=== PATIENT | female | born 1995 | race Caucasian/White ===

== ENCOUNTER 2017-01-08 10:57 | Outpatient (CLI) | payer MEDICAID ==
[~2017-01-08] VITALS: Ht 160 cm; Wt 100.8 kg
[~2017-01-08 10:57] MED LIST: DENIES; PRENAT PO
[2017-01-08 11:09] VITALS: Ht 160 cm; Wt 100.8 kg
--- NOTE | 2017-01-08 13:48 | RADRPT ---
PROCEDURE: US OB. CLINICAL INDICATION: Size and dates , SROM TECHNIQUE: Multiple sonographic images of the pelvis and gravid uterus were obtained. The images were reviewed on a PACS workstation. COMPARISON: No prior studies are available for comparison. FINDINGS: There is a single viable intrauterine gestation. Cardiac activity is present with 134 beats per min [place]. There is a vertex presentation. The placenta is anterior. There is no evidence for an abruption or placenta previa. There is a normal amount of amniotic fluid with an NAPOLEON = 14.7 cm. Measurements were made in order to determine age. The results are as follows: BPD =9.2 cm HC =33.8 cm AC =33.2 cm FL =7.4 cm Estimated gestational age of approximately 37 weeks and 6 days based on ultrasound measurements. Clinical age: 37 weeks and 0 days. The estimated date of delivery is 01/23/17, based on ultrasound measurements. The EFW = 3237 g, 70%, based on LMP age. RPTAT: AA IMPRESSION: Single viable intrauterine gestation of approximately 37 weeks and 6 days based on ultrasound measu rements. .Vitaliy Sampson MD, MD Date Time Electronically viewed and signed by .Vitaliy Sampson MD, on 01/08/2017 13:48 .S/
--- NOTE | 2017-01-08 13:50 | RADRPT ---
PROCEDURE: US OB biophysical profile. CLINICAL INDICATION: decreased movements, SROM TECHNIQUE: Multiple sonographic images of the pelvis were obtained. The images were reviewed on a PACS workstation. COMPARISON: same day FINDINGS: There is a single viable intrauterine gestation. Cardiac activity is present with 137 beats per min [place]. There is a vertex presentation. The placenta is anterior. There is no evidence for an abruption or placenta previa. There is a normal amount of amniotic fluid with an NAPOLEON = 14.7 cm. Biophysical profile: movement 2/2 tone 2/2. breathing 2/2 NAPOLEON 2/2 Total 06/30 RPTAT: AA . IMPRESSION: Normal biophysical profile. . .Vitaliy Sampson MD, MD Date Time Electronically viewed and signed by .Vitaliy Sampson MD, MD on 01/08/2017 13:50 .S/
--- NOTE | 2017-01-08 14:58 | CONS ---
Date/Time of Note Date/Time of Note DATE: 01/08/17 TIME: 14:50 Consultation Date/Type/Reason Admit Date/Time Initial Consult Date Laboratory Tests Type of Consultation: Triage consult Reason for Consultation This patient is a 21 years old 2 para 1 with EDC of January 29, 2017 which makes her about 37 weeks , . She came to OB triage complaining of leaking fluid from vagina and possible rupture of membrane, On examination she is a well-developed well-nourished lady about 9 months in no acute distress. Her abdomen was soft heart tracing were normal with good acceleration and variability no deceleration. Her vital signs were normal: blood pressure 116/65 pulse rate 87 temperature 98.1. On pelvic examination her cervix was about 1 cm dilated 40% effaced -2 station . Nitrazine test was negative. Dominique was ordered and was negative. On ultrasound study biophysical profile was 8 of 8. The NAPOLEON was 14.7. Estimated weight was 3237 g Patient was kept in the triage area for another hour.The contraction were rare . tracing is okay Disposition: reassurance was given and patient is discharged to be followed in the clinic. Laboratory Tests End of dictation Exam/Review of Systems Results Results 24 hrs Laboratory Tests Test 01/08/17 11:30 Membranes Rupture NEGATIVE KIRSTIE MICHEL MD Jan 08, 2017 14:58 KIRSTIE MICHEL MD Jan 08, 2017 14:58
== END 2017-01-08 15:10 | disposition home or self-care (01) ==
LOC: OBT 10:57 → L-D 10:58 → OBT 15:10
PROVIDERS: ATTEND Obstetrics & Gynecology
DX: O42.92 Full-term premature rupture of membranes, unspecified as to length of time between rupture and onset of labor (principal); Z3A.37 37 weeks gestation of pregnancy
CPT/HCPCS: 76815; 76818; 84112; Z7500; G0463

== ENCOUNTER 2017-01-24 15:20 | Inpatient (IN) | payer MEDICAID, OTHER ==
[~2017-01-24] VITALS: Ht 160 cm; Wt 102.5 kg
[2017-01-24 15:41] VITALS: Ht 160 cm; Wt 102.5 kg
[2017-01-24 15:42] VITALS: PULSE 98
[2017-01-24] MEDS ORDERED: OXYTOCIN 30 UNITS/LR 500 ML IV PRN (16:00)
[2017-01-24] MEDS ORDERED: BUTORPHANOL 2 MG INJ IV PRN ×2 (16:00)
[2017-01-24] MEDS ORDERED: LACTATED RINGER'S 1,000 ML IV PRN (16:00)
[2017-01-24] MEDS ORDERED: MISOPROSTOL 200 MCG TAB PR PRN (16:00)
[2017-01-24] MEDS ORDERED: METHYLERGONOVINE 0.2 MG INJ IM PRN (16:00)
[2017-01-24] MEDS ORDERED: OXYTOCIN 30 UNITS/LR 500 ML IV SCH ×2 (16:00)
[2017-01-24] MEDS ORDERED: CARBOPROST 250 MCG INJ IM PRN (16:00)
[2017-01-24] MEDS ORDERED: LIDOCAINE 1% (MPF) 30 ML INJ INJ PRN (16:00)
[2017-01-24 16:22] LABS: ADD SCAN DIFF NO
[2017-01-24 16:23] LABS: BASOPHILS % 0.2 % (0.0-2.0); EOSINOPHILS % 0.3 % (0.0-7.0); HEMATOCRIT 30.8 % (37.0-47.0); HEMOGLOBIN 9.6 g/dl (12.0-16.0); LYMPHOCYTES # 2.7 10^3/ul (0.8-2.9); LYMPHOCYTES % 29.7 % (15.0-51.0); MEAN CORPUSCULAR HEMOGLOBIN 24.6 pg (29.0-33.0); MEAN CORPUSCULAR HGB CONC 31.2 g/dl (32.0-37.0); MEAN PLATELET VOLUME 10.6 fl (7.4-10.4); MONOCYTE # 0.5 10^3/ul (0.3-0.9); MONOCYTES % 5.8 % (0.0-11.0); NEUTROPHIL # 5.8 10^3/ul (1.6-7.5); PLATELET COUNT 278 10^3/UL (140-415); RED CELL DISTRIBUTION WIDTH 14.6 % (11.5-14.5); WHITE BLOOD COUNT 9.1 10^3/ul (4.8-10.8)
[2017-01-24] MEDS: LACTATED RINGER'S 1,000 ML IV SCH ×3 (16:24→23:15)
[2017-01-24] MEDS ORDERED: TERC20CR VAGINAL (16:30)
--- NOTE | 2017-01-24 16:33 | RADRPT ---
PROCEDURE: US OB. CLINICAL INDICATION: Large for gestational age. TECHNIQUE: Multiple sonographic images of the uterus were obtained. The images were revi ewed on a PACS workstation. COMPARISON: No prior studies are available for comparison. FINDINGS: There is a single live intrauterine gestation. heart rate is 129 beats per minute. Measurements were made in order to determine age. The results are as follows: BPD = 9.32 cm. HC = 32.68 cm. AC = 38.27 cm. FL = 7.70 cm. Estimated weight is 4086 +/- 613 grams. LMP growth percentile is 91%. Menstrual age by ultrasound dates is 38 weeks 1 day. The estimated date of delivery is 02/06/2017. Position is cephalic and placenta is anterior grade II. There is no evidence for an abruption or sophy centa previa. IMPRESSION: 1. Single live intrauterine gestation of 38 weeks 1 day menstrual age by ultrasound dates. 2. The estimated date of delivery is 02/06/2017. 3. Estimated weight is 4086 +/- 613 g which is at the 91st percentile. RPTAT: QQ .Zbigniew Khan MD, Date Time Electronically viewed and signed by .Zbigniew Khan MD, on 01/24/2017 16:33 .R/
[2017-01-24 16:37] LABS: INR 1.02; PROTIME 13.4 Sec (12.2-14.2)
[2017-01-24 16:38] LABS: PARTIAL THROMBOPLASTIN TIME 29.2 Sec (25.0-35.0)
--- NOTE | 2017-01-24 16:45 | TRIAGE ---
OB Triage Datetime Report Generated by CPN: 01/24/2017 16:44 Datetime: 01/24/2017 16:38 Labor Evaluation Frequency: 8 Monitor Mode: External Duration (sec)2399: 60 Quality: Mild Pattern: Normal: <= 5 Contractions in 10 Minutes Resting Tone [place]: Relaxed Heart Rate FHR Baseline Rate: 130 Monitor Mode: External US FHR Baseline Changes: No Baseline Change Variability: Moderate 6-25 bpm Accelerations: 15X15 Decelerations: None Category: Category I Datetime: 01/24/2017 16:11 Labor Evaluation Frequency: 8 Monitor Mode: Palpation Duration (sec)2399: 60 Quality: Mild Pattern: Normal: <= 5 Contractions in 10 Minutes Resting Tone [place]: Relaxed Heart Rate FHR Baseline Rate: 130 Monitor Mode: External US FHR Baseline Changes: No Baseline Change Variability: Moderate 6-25 bpm Accelerations: 15X15 Decelerations: None Category: Category I Datetime: 01/24/2017 16:00 Assessment Type: Admission Assessment Vaginal Bleeding: None Maternal Assessment Level of Consciousness: Fully Conscious DTR's/Clonus: DTRs 2+; No Clonus Headache: Denies Blurred Vision: No Respiratory Effort: Unlabored; Regular Rhythm; Equal Expansion Breath Sounds, Left: Clear and Equal Breath Sounds, Right: Clear and Equal Nausea/Vomiting: Denies RUQ Epigastric Pain: Denies Lower Extremities Edema: Bilateral Lower Extremities Degree: 1+ Upper Extremities Edema: Bilateral Upper Extremities Degree: 1+ Facial Edema: None Fall Risk Assessment History of Falling: (0) No Secondary Diagnosis: (0) No Ambulatory Aid: (0) Bedrest/Nurse Assist IV Therapy: (0) No Gait: (0) Normal/Bedrest/Immobile Mental Status: (0) Oriented to Own Ability Fall Score: 0 Fall Risk Score Definition: No Risk: No action required Labor Evaluation Frequency: 8 Duration (sec)2399: 60 Quality: Strong Pattern: Normal: <= 5 Contractions in 10 Minutes Resting Tone [place]: Relaxed Heart Rate FHR Baseline Rate: 130 Variability: Moderate 6-25 bpm Accelerations: 15X15 Decelerations: None Category: Category I Pain Assessment Pain Scale: 9 Pain Presence: Intermittent Pain Type: Contraction Pain Location: Abdomen; Back Pain Goal: 2 Vaginal Exam Dilatation (cms): 2.5 Effacement (%): 60 Station: -2 Membrane Status: Intact Datetime: 01/24/2017 15:48 Stage of : Labor Time of Arrival: 01/24/2017 15:48 EGA: 39.2 Arrived By: Ambulatory Arrived From: TRIAGE Datetime: 01/24/2017 15:43 Stage of : OB Triage Datetime: 01/24/2017 15:29 Stage of : OB Triage Assessment Type: Triage Maternal Assessment Level of Consciousness: Fully Conscious DTR's/Clonus: DTRs 2+; No Clonus Headache: Denies Blurred Vision: No Respiratory Effort: Unlabored; Regular Rhythm; Equal Expansion Breath Sounds, Left: Clear and Equal Breath Sounds, Right: Clear and Equal Nausea/Vomiting: Denies RUQ Epigastric Pain: Denies Lower Extremities Edema: Bilateral Lower Extremities Degree: 1+ Upper Extremities Edema: Bilateral Upper Extremities Degree: 1+ Facial Edema: None Temperature Route: Oral Fall Risk Assessment History of Falling: (0) No Secondary Diagnosis: (0) No Ambulatory Aid: (0) Bedrest/Nurse Assist IV Therapy: (0) No Gait: (0) Normal/Bedrest/Immobile Mental Status: (0) Oriented to Own Ability Fall Score: 0 Fall Risk Score Definition: No Risk: No action required Labor Evaluation Frequency: 8 Monitor Mode: External Duration (sec)2399: 60 Quality: Mild Pattern: Normal: <= 5 Contractions in 10 Minutes Resting Tone [place]: Relaxed Monitor Mode: External US Pain Assessment Pain Scale: 9 Pain Presence: Intermittent Pain Type: Cramping; Contraction Pain Location: Abdomen; Back Pain Goal: 5 Pain Relief Measures: Comfort Measures Vaginal Exam Dilatation (cms): 2.5 Effacement (%): 60 Station: -2 Exam By: PS Membrane Status: Intact Datetime: 01/24/2017 15:20 Time of Arrival: 01/24/2017 15:20 EGA: 39.2 Arrived By: Wheelchair Arrived From: Home Chief Complaint: CONTRACTIONS AND VAGINAL DISCHARGE Movement: Present Contractions: Regular Time Contractions Began: 01/24/2017 05:00 Contractions: Q 8MIN Rupture of Membranes: Denies Vaginal Bleeding: None Vaginal Discharge: Denies Recent Sexual Intercouse: Denies Abdominal Trauma: Not Applicable Patient Complaints: None Additional Patient Complaints: VAGINAL YEAST ON MEDIVATION SINCE 01/23/2017 TAKES [place] Initial Plan: ADMIT TO LABOR AND DELIVERY Datetime: 01/08/2017 14:10 Stage of : OB Triage Datetime: 01/08/2017 13:49 Labor Evaluation Frequency: 0 Monitor Mode: External Pattern: Normal: <= 5 Contractions in 10 Minutes Resting Tone [place]: Relaxed Heart Rate FHR Baseline Rate: 140 Monitor Mode: External US Variability: Moderate 6-25 bpm Decelerations: None Category: Category I Pain Assessment Pain Scale: 0 Pain Presence: None/Denies Pain Type: N/A Pain Goal: 3 Pain Relief Measures: Comfort Measures Datetime: 01/08/2017 13:02 Labor Evaluation Frequency: OCCAS Monitor Mode: External Duration (sec)2399: 50-70 Pattern: Normal: <= 5 Contractions in 10 Minutes Resting Tone [place]: Relaxed Heart Rate FHR Baseline Rate: 135 Monitor Mode: External US Variability: Moderate 6-25 bpm Decelerations: None Category: Category I Pain Assessment Pain Scale: 0 Pain Presence: None/Denies Pain Type: N/A Pain Location: Abdomen Pain Goal: 3 Pain Relief Measures: Comfort Measures Datetime: 01/08/2017 11:55 Labor Evaluation Frequency: OCCAS Monitor Mode: External Duration (sec)2399: 30-50 Resting Tone [place]: Relaxed Heart Rate FHR Baseline Rate: 125 Monitor Mode: External US Variability: Moderate 6-25 bpm Decelerations: None Category: Category I Pain Assessment Pain Scale: 0 Pain Presence: None/Denies Pain Type: N/A Pain Goal: 3 Pain Relief Measures: Comfort Measures Datetime: 01/08/2017 11:28 Vaginal Exam Dilatation (cms): 1.0 Effacement (%): 40 Station: -2 Exam By: S BHARATH Vaginal Bleeding: None Cervix, Consistency: Soft Cervix, Position: Posterior Presentation 'A': Cephalic Datetime: 01/08/2017 11:19 Stage of : OB Triage Datetime: 01/08/2017 11:05 Stage of : OB Triage Assessment Type: Triage Maternal Assessment Level of Consciousness: Fully Conscious DTR's/Clonus: DTRs 2+; No Clonus Headache: Denies Blurred Vision: No Respiratory Effort: Unlabored; Regular Rhythm; Equal Expansion Breath Sounds, Left: Clear and Equal Breath Sounds, Right: Clear and Equal Nausea/Vomiting: Denies RUQ Epigastric Pain: Denies Lower Extremities Edema: None Degree: None Upper Extremities Edema: None Degree: None Facial Edema: None Temperature Route: Axillary Fall Risk Assessment History of Falling: (0) No Secondary Diagnosis: (0) No Ambulatory Aid: (0) Bedrest/Nurse Assist IV Therapy: (0) No Gait: (0) Normal/Bedrest/Immobile Mental Status: (0) Oriented to Own Ability Fall Score: 0 Fall Risk Score Definition: No Risk: No action required Labor Evaluation Frequency: 0 Monitor Mode: External Pattern: Normal: <= 5 Contractions in 10 Minutes Resting Tone [place]: Relaxed Heart Rate FHR Baseline Rate: 135 Monitor Mode: External US Variability: Moderate 6-25 bpm Decelerations: None Category: Category I Pain Presence: None/Denies Pain Goal: 3 Pain Relief Measures: Comfort Measures Datetime: 01/08/2017 11:04 Time of Arrival: 01/08/2017 10:50 EGA: 37.0 Arrived By: Ambulatory Arrived From: Home Chief Complaint: C/O SROM THIS AM, OCCAS UC'S, DENIES BLEEDING Movement: Present Contractions: Occasional Rupture of Membranes: Unsure Vaginal Bleeding: None Vaginal Discharge: Present Recent Sexual Intercouse: Denies Abdominal Trauma: Not Applicable Patient Complaints: Cramping Time Provider Notified: 01/08/2017 11:20 Provider Notified: JEROD Initial Plan: MONITOR, ROM PLUS, NITRAZINE, BPP/EFW Datetime: 11/12/2016 15:45 Labor Evaluation Frequency: 0 Monitor Mode: External Resting Tone [place]: Relaxed Heart Rate FHR Baseline Rate: 135 Monitor Mode: External US Variability: Moderate 6-25 bpm Decelerations: None Category: Category I Pain Assessment Pain Scale: 0 Pain Presence: None/Denies Pain Type: N/A Pain Goal: 3 Pain Relief Measures: Comfort Measures Datetime: 11/12/2016 15:40 Stage of : OB Triage Datetime: 11/12/2016 14:31 Labor Evaluation Frequency: 0 Monitor Mode: External Resting Tone [place]: Relaxed Heart Rate FHR Baseline Rate: 135 Monitor Mode: External US Variability: Moderate 6-25 bpm Decelerations: None Category: Category I Datetime: 11/12/2016 14:24 Stage of : OB Triage Datetime: 11/12/2016 13:35 EGA: 28.6 Datetime: 11/12/2016 13:30 Stage of : OB Triage Assessment Type: Triage Maternal Assessment Level of Consciousness: Fully Conscious DTR's/Clonus: DTRs 2+; No Clonus Headache: Denies Blurred Vision: No Respiratory Effort: Unlabored; Regular Rhythm; Equal Expansion Nausea/Vomiting: Denies RUQ Epigastric Pain: Denies Lower Extremities Edema: None Degree: None Upper Extremities Edema: None Degree: None Facial Edema: None Temperature Route: Axillary Fall Risk Assessment History of Falling: (0) No Secondary Diagnosis: (0) No Ambulatory Aid: (0) Bedrest/Nurse Assist IV Therapy: (0) No Gait: (0) Normal/Bedrest/Immobile Mental Status: (0) Oriented to Own Ability Fall Score: 0 Fall Risk Score Definition: No Risk: No action required Datetime: 11/12/2016 13:20 Time of Arrival: 11/12/2016 13:08 Arrived By: Ambulatory Arrived From: Home Chief Complaint: CONSTANT PAIN ON LEFT GROIN DOWN TO LEFT LEG FOR THE PAST 2 WEEKS Movement: Present Contractions: Denies/Absent Rupture of Membranes: Denies Vaginal Bleeding: None Vaginal Discharge: Denies Recent Sexual Intercouse: Denies Abdominal Trauma: Not Applicable Patient Complaints: None; Other Time Provider Notified: 11/12/2016 14:24 Provider Notified: TIESHA Initial Plan: EFM, U/A, KIDNEY U/S Monitor Mode: External Monitor Mode: External US Membrane Status: Intact
[2017-01-24] MEDS ORDERED: LACTATED RINGER'S 1,000 ML IV ONE (21:48)
[2017-01-24] MEDS ORDERED: KETOROLAC 30 MG INJ IV PRN (22:00)
[2017-01-24] MEDS ORDERED: CITRIC ACID/NA CITRATE 30 ML CUP PO ONE (22:00)
[2017-01-24] MEDS ORDERED: DIPHENHYDRAMINE 50 MG INJ IV PRN (22:00)
[2017-01-24] MEDS ORDERED: PROCHLORPERAZINE 10 MG INJ IV PRN (22:00)
[2017-01-24] MEDS ORDERED: ONDANSETRON 4 MG INJ IV PRN (22:00)
[2017-01-24] MEDS ORDERED: morphine 2 MG INJ IV PRN ×2 (22:00)
[2017-01-24] MEDS ORDERED: NALOXONE (0.4 MG/ML) INJ IV PRN (22:00)
[2017-01-24] MEDS ORDERED: ONDANSETRON 4 MG INJ IV ONE (22:00)
[2017-01-24] MEDS ORDERED: FLUCONAZOLE 150 MG TAB PO ONE (22:30)
[2017-01-25] MEDS: FENTAnyl 2MCG/ML-ROPIV 0.2% 100 ML BAG EPI SCH ×3 (03:42→17:08)
[2017-01-25] MEDS: LACTATED RINGER'S 1,000 ML IV SCH ×2 (07:27→17:08)
[2017-01-25] MEDS ORDERED: OXYTOCIN 30 UNITS/LR 500 ML IV SCH (08:30)
--- NOTE | 2017-01-25 19:01 | HP ---
Date/Time of Note Date/Time of Note DATE: 01/25/17 TIME: 18:51 OB - History Hx of Present Free Text/Dictation 21 years old female 2 para 1 39 weeks and 2 days admitted to premont and active labor admission pelvic exam, cervix 4-5 cm 80% effaced vertex at -1 station contractions every 3-4 minute heart tracing category 1 patient transferred to labor and delivery room for expectant management for the delivery Chief Complaint: Labor contraction Estimated Due Date: Jan 29, 2017 : 2 Para: 1 Care: Good Care Ultrasounds: Normal mid trimester US Obstetrical Complications: None Medical Complications: Other ( depression with first ) Past Family/Social History * Past Medical, Surgical, Family and Obstetric Histories reviewed from chart. Past history corrective surgery on right ear cartilage in 2005', normal spontaneous vaginal delivery 2004. Rubella: immune RPR/VDRL: Negative GBS Status: Negative HBsAG: Negative OB Admission Exam Vital Signs Vital Signs Vital Signs Date Time Temp Pulse Resp B/P Pulse Ox O2 Delivery O2 Flow Rate FiO2 01/24/17 15:42 98.8 98 Physical Exam HEENT: WNL Heart: Rhythm Normal Lungs: Clear, Equal Abdomen: WNL Extremities: Normal Reflexes: Normal Cervical Dilatation: 5cm Effacement: 75% Station: -1 Amniotic Fluid: Clear Heart Rate: 120's Varibility: Moderate Contractions on Admission: < 5 Minutes Apart Intensity: Firm Last 72 hours Lab Results CBC & BMP 01/24/17 16:00 OB Assessment/Plan Reason for admission: active labor Plan: Expectant Management MIRANDA NEWSOME MD Jan 25, 2017 19:01
--- NOTE | 2017-01-25 19:05 | LDN ---
Date/Time of Note Date/Time of Note DATE: 01/25/17 TIME: 19:01 Delivery Summary Normal spontaneous vaginal delivery of a baby girl from CANDI position shoulders delivered without any difficulty rest of the baby's body follow cord clamped after stopped pulsation placenta spontaneous expulsion inspected complete patient sustained small first-degree perineal laceration repair with 3-0 chromic catgut estimated blood loss 250-300 cc Placenta Delivered: Spontaneously Meconium: none Perineum intact?: No Perineal laceration: 1 Perineal laceration repair: First-degree perineal laceration repaired with 3-0 chromic catgut Anesthesia type: Epidural Sponge & Needle done & correct: Yes All needle counts correct: Yes Any foreign bodies felt in the: No Problems: Delivery Information Sex Infant Sex: female Apgars 1 Minute: 9 5 Minute: 9 Suctioning Nose & mouth suctioned at dyllan: Yes Delee suction performed: No Umbilical Cord Umbilical cord with: 3 Vessels Cord presentations: no nuchal cord Cord Blood was obtained: Yes MIRANDA NEWSOME MD Jan 25, 2017 19:05
--- NOTE | 2017-01-25 19:50 | DELSUM ---
Delivery Summary A-C Datetime Report Generated by CPN: 01/25/2017 19:50 DELIVERY PERSONNEL Lead Project Engineer: Alanemanaston, Anusha MATERNAL INFORMATION Delivery Anesthesia: Epidural Medications in Delivery: 30 UNITS PITOCIN Estimated Blood Loss (ml): 150 Placenta Cultured: No Maternal Complications: None LABOR SUMMARY EDC: 01/29/2017 00:00 No. Babies in Womb: 1 Attempted: No Labor Anesthesia: Epidural LABOR INFORMATION Reason for Induction: Not Applicable Onset of Labor: 01/24/2017 05:00 Complete Dilatation: 01/25/2017 18:01 Oxytocin: Augmentation Group B Beta Strep: Negative Antibiotics # of Doses: N/A Steroids Given: None Reason Steroids Not Administered: Not Applicable MEMBRANES Membranes Rupture Method: Artificial Rupture of Membranes: 01/25/2017 15:25 Amniotic Fluid Color: Clear Amniotic Fluid Amount: Small Amniotic Fluid Odor: None VAGINAL DELIVERY Episiotomy: None Laceration Extension: First Degree Laceration Type: Perineal Laceration Repair: Yes Initial Vag Sponge Count: 20 Final Vag Sponge Count: 20 Initial Vag Sharps Count: 2 Final Vag Sharps Count: 2 Sponge Count Correct: Yes Sharps Count Correct: Yes BABY A INFORMATION Delivery Date/Time: 01/25/2017 18:33 Method of Delivery: Vaginal Born in Route : No : N/A Forceps: N/A Vacuum Extraction: N/A Shoulder Dystocia : No SHOULDER DYSTOCIA BABY A Delivery Date/Time: 01/25/2017 18:33 PRESENTATION/POSITION BABY A Presentation: Cephalic Presentation: Cephalic Presentation: Cephalic Cephalic Presentation: Vertex Vertex Position: Right Occipital Anterior Breech Presentation: N/A PLACENTA INFORMATION BABY A Placenta Delivery Time : 01/25/2017 18:34 Placenta Method of Delivery: Spontaneous Placenta Status: Delivered SCORES BABY A Heart Rate 1 min: >100 bpm Resp Effort 1 min: Good Cry Reflex Irritability 1 min: Cough/Sneeze/Pulls Away Muscle Tone 1 min: Active Motion Color 1 min: Body [place], Extremit Blue Heart Rate 5 min: >100 bpm Resp Effort 5 min: Good Cry Reflex Irritability 5 min: Cough/Sneeze/Pulls Away Muscle Tone 5 min: Active Motion Color 5 min: Body [place], Extremit Blue INFORMATION BABY A Gestational Age at Delivery: 39.3 Outcome : Liveborn Condition : Stable Infant Sex: Female IDENTIFICATION/MEDS BABY A ID Band Number: [id number] ID Band Location: Right Leg; Left Arm Sensor Applied: Yes Sensor Number: [id number] Sensor Location : Cord Clamp Vitamin K Given : Not Given Erythromycin Given: Not Given WEIGHT/LENGTH BABY A Birthweight (gm): 3745 Infant Length (in): 19.75 CORD INFORMATION BABY A No. Cord Vessels: 3 Nuchal Cord : N/A Cord Blood Taken: No Banking/Donate Info: NO Suction: Mouth; Nose ASSESSMENT BABY A Infant Complications: None Physical Findings at Delivery: Within Normal Limits Respirations: Appears Normal Material Worker/ALS Called : No Infant Care By: DARCY Transferred To: [facility]
[2017-01-25 20:45] VITALS: BP 115/63; PULSE 71; RESP 18
[2017-01-25] MEDS: LACTATED RINGER'S 1,000 ML IV* SCH (20:58)
[2017-01-25] MEDS ORDERED: ACETAMINOPHEN 325 MG TAB PO PRN (21:00)
[2017-01-25] MEDS ORDERED: BENZOCAINE 20% 56 ML SPRAY TOP PRN (21:00)
[2017-01-25] MEDS ORDERED: OXYTOCIN 30 UNITS/LR 500 ML IV PRN (21:00)
[2017-01-25] MEDS ORDERED: DIBUCAINE 1% 30 GM OINT PR PRN (21:00)
[2017-01-25] MEDS ORDERED: CARBOPROST 250 MCG INJ IM PRN (21:00)
[2017-01-25] MEDS ORDERED: ONDANSETRON 4 MG INJ IV PRN (21:00)
[2017-01-25] MEDS ORDERED: ACETAMINOPHEN/CODEINE #3 TAB PO PRN (21:00)
[2017-01-25] MEDS ORDERED: WITCH HAZEL/GLYCERIN PAD PR PRN (21:00)
[2017-01-25] MEDS ORDERED: OXYCODONE/ASPIRIN (4.88/325) TAB PO PRN (21:00)
[2017-01-25] MEDS ORDERED: METHYLERGONOVINE 0.2 MG INJ IM PRN (21:00)
[2017-01-25] MEDS ORDERED: MISOPROSTOL 200 MCG TAB PR PRN (21:00)
[2017-01-25] MEDS ORDERED: LANOLIN 7 GM TUBE TOP PRN (21:00)
[2017-01-25] MEDS: SENNA/DOCUSATE NA (8.6MG/50MG) TAB PO SCH (21:19)
[2017-01-25] MEDS: OXYCODONE/ASPIRIN (4.88/325) TAB PO PRN (21:20)
[2017-01-25 22:00] VITALS: BP 122/72; PULSE 75; RESP 19
[2017-01-25] MEDS: OXYTOCIN 30 UNITS/LR 500 ML IV SCH (23:09)
[2017-01-25] MEDS: IBUPROFEN 600 MG TAB PO SCH (23:54)
[2017-01-26 00:10] VITALS: BP 116/58; PULSE 75; RESP 18
[2017-01-26] MEDS: OXYTOCIN 30 UNITS/LR 500 ML IV SCH (03:00)
[2017-01-26] MEDS: OXYCODONE/ASPIRIN (4.88/325) TAB PO PRN ×2 (03:05→10:40)
[2017-01-26 04:00] VITALS: BP 104/63; PULSE 69; RESP 17
[2017-01-26] MEDS: LACTATED RINGER'S 1,000 ML IV* SCH (04:58)
[2017-01-26] MEDS: IBUPROFEN 600 MG TAB PO SCH ×3 (05:21→17:52)
[2017-01-26 07:54] LABS: ADD SCAN DIFF NO
[2017-01-26 07:58] LABS: BASOPHILS % 0.2 % (0.0-2.0); EOSINOPHILS # 0.1 10^3/ul (0.0-0.5); EOSINOPHILS % 0.8 % (0.0-7.0); HEMATOCRIT 26.7 % (37.0-47.0); HEMOGLOBIN 8.5 g/dl (12.0-16.0); LYMPHOCYTES # 3.2 10^3/ul (0.8-2.9); LYMPHOCYTES % 36.4 % (15.0-51.0); MEAN CORPUSCULAR HEMOGLOBIN 25.1 pg (29.0-33.0); MEAN CORPUSCULAR HGB CONC 31.8 g/dl (32.0-37.0); MEAN CORPUSCULAR VOLUME 78.8 fl (82.0-101.0); MEAN PLATELET VOLUME 10.7 fl (7.4-10.4); MONOCYTE # 0.7 10^3/ul (0.3-0.9); MONOCYTES % 7.9 % (0.0-11.0); NEUTROPHIL # 4.7 10^3/ul (1.6-7.5); NEUTROPHILS % 54.1 % (39.0-77.0); PLATELET COUNT 214 10^3/UL (140-415); RED BLOOD COUNT 3.39 10^6/ul (4.20-5.40); RED CELL DISTRIBUTION WIDTH 14.6 % (11.5-14.5); WHITE BLOOD COUNT 8.7 10^3/ul (4.8-10.8)
[2017-01-26 08:15] VITALS: BP 101/66; PULSE 64; RESP 17
[2017-01-26] MEDS: SENNA/DOCUSATE NA (8.6MG/50MG) TAB PO SCH ×2 (09:39→22:33)
--- NOTE | 2017-01-26 09:48 | PN ---
Date/Time of Note Date/Time of Note DATE: 01/26/17 TIME: 09:47 OB Subjective Subjective Subjective day 1 Vital signs stable Afebrile abdomen soft uterus firm lochia normal extremity normal Laboratory Tests Test 01/26/17 07:30 Basophils # 0.010^3/ul Basophils % 0.2% Eosinophils # 0.110^3/ul Eosinophils % 0.8% Hematocrit 26.7% Hemoglobin 8.5g/dl Lymphocytes # 3.210^3/ul Lymphocytes % 36.4% Mean Corpuscular Hemoglobin 25.1pg Mean Corpuscular Hemoglobin Concent 31.8g/dl Mean Corpuscular Volume 78.8fl Mean Platelet Volume 10.7fl Monocytes # 0.710^3/ul Monocytes % 7.9% Neutrophils # 4.710^3/ul Neutrophils % 54.1% Nucleated Red Blood Cells # 0.010^3/ul Nucleated Red Blood Cells % 0.0/100WBC Platelet Count 08244^3/UL Red Blood Count 3.3910^6/ul Red Cell Distribution Width 14.6% White Blood Count 8.710^3/ul Current Medications Medications (Trade) Dose Ordered Sig/Ina Route PRN Reason Start Time Stop Time Status Last Admin Dose Admin Lactated Ringer's (Lr) 1,000 ml @ 125 mls/hr Q8H IV 01/24/17 15:47 01/25/17 21:01 DC 01/25/17 17:08 Butorphanol Tartrate (Stadol) 1 mg Q2H PRN IV PAIN 01/24/17 16:00 01/25/17 21:01 DC Butorphanol Tartrate (Stadol) 2 mg Q2H PRN IV PAIN 01/24/17 16:00 01/25/17 21:01 DC Lidocaine 30 ml 30 ml ONCE PRN INJ EPISIOTOMY/TEARING 01/24/17 16:00 01/25/17 21:01 DC Oxytocin/Lactated Ringer's 500 ml @ 125 mls/hr ONCE -MAY REPEAT X1 IV 01/24/17 16:00 01/25/17 21:01 DC Oxytocin/Lactated Ringer's 500 ml @ 125 mls/hr ONCE IV 01/24/17 16:00 01/25/17 21:01 DC 01/25/17 18:58 Lactated Ringer's 1,000 ml @ 2,000 mls/hr Q30M PRN IV PRE-EPIDURAL BOLUS 01/24/17 16:00 01/25/17 21:01 DC Oxytocin/Lactated Ringer's 500 ml @ 0 mls/hr ONCE PRN IV For Hemorrhage Management 01/24/17 16:00 01/25/17 21:01 DC Methylergonovine Maleate (Methergine) 0.2 mg ONCE PRN IM VAGINAL BLEEDING 01/24/17 16:00 01/25/17 21:01 DC Carboprost Tromethamine (Hemabate) 250 mcg ONCE PRN IM VAGINAL BLEEDING 01/24/17 16:00 01/25/17 21:02 DC Misoprostol 1000 mcg 1,000 mcg ONCE PRN WI VAGINAL BLEEDING 01/24/17 16:00 01/25/17 21:02 DC Lactated Ringer's (Lr) 1,000 ml @ 1,000 mls/hr Q1H ONCE IV 01/24/17 21:48 01/24/17 22:47 DC 01/24/17 21:54 Ondansetron HCl (Zofran Inj) 4 mg pre-procedure ONCE IV 01/24/17 22:00 01/24/17 22:01 DC 01/24/17 21:55 Citric Acid/ Sodium Citrate (Bicitra) 30 ml pre-procedure ONCE PO 01/24/17 22:00 01/24/17 22:01 DC 01/24/17 22:00 Naloxone HCl (Narcan) 0.1 mg Q2M PRN IV FOR RESP RATE 8 OR LESS 01/24/17 22:00 01/25/17 21:02 DC Ketorolac Tromethamine (Toradol) 30 mg Q6H PRN IV PAIN 01/24/17 22:00 01/25/17 21:01 DC Morphine Sulfate (morphine) 2 mg Q3H PRN IV PAIN LEVEL 1-5 01/24/17 22:00 01/25/17 21:02 DC Morphine Sulfate (morphine) 4 mg Q3H PRN IV PAIN LEVEL 6-10 01/24/17 22:00 01/25/17 21:02 DC Diphenhydramine HCl (Benadryl) 25 mg Q6H PRN IV ITCHING 01/24/17 22:00 01/25/17 21:01 DC Ondansetron HCl (Zofran Inj) 4 mg Q6H PRN IV NAUSEA AND/OR VOMITING 01/24/17 22:00 01/25/17 21:02 DC Prochlorperazine (Compazine Inj) 10 mg ONCE PRN IV NAUSEA AND/OR VOMITING 01/24/17 22:00 01/25/17 21:02 DC Fentanyl/ Ropivacaine 100 ml EPIDURAL INFUSION EPI 01/24/17 22:00 01/25/17 21:01 DC 01/25/17 17:08 Fluconazole 150 mg 150 mg ONCE ONCE PO 01/24/17 22:30 01/24/17 22:31 DC 01/24/17 23:10 Oxytocin/Lactated Ringer's 500 ml @ 0 mls/hr Q0M IV 01/25/17 08:30 01/25/17 21:01 DC 01/25/17 08:39 Oxytocin/Lactated Ringer's 500 ml @ 125 mls/hr Q4H IV 01/25/17 20:58 01/26/17 04:57 DC 01/25/17 23:09 Ibuprofen (Motrin) 600 mg Q6 PO 01/26/17 00:00 01/26/17 05:21 Acetaminophen (Tylenol Tab) 650 mg Q4H PRN PO PAIN LEVEL 1-5 01/25/17 21:00 Acetaminophen/ Codeine Phosphate (Tylenol No.3) 1 tab Q4H PRN PO PAIN LEVEL 1-5 01/25/17 21:00 Acetaminophen/ Codeine Phosphate (Tylenol No.3) 2 tab Q4H PRN PO PAIN LEVEL 6-10 01/25/17 21:00 Oxycodone/Aspirin (Percodan) 1 tab Q3H PRN PO PAIN LEVEL 1-5 01/25/17 21:00 Oxycodone/Aspirin (Percodan) 2 tab Q3H PRN PO PAIN LEVEL 6-10 01/25/17 21:00 01/26/17 03:05 Ondansetron HCl (Zofran Inj) 4 mg Q6H PRN IV NAUSEA AND/OR VOMITING 01/25/17 21:00 Senna/Docusate Sodium (Senokot-S) 1 tab BID PO 01/25/17 21:00 01/26/17 09:39 Witch Sophie/ Glycerin (Tucks Pads) 1 pad BEDSIDE MEDICATION PRN WI HEMORRHOID/EPISIOTMY PAIN 01/25/17 21:00 01/25/17 21:20 Benzocaine (Dermoplast [place]) 1 spray BEDSIDE MEDICATION PRN TOP HEMORRHOID/EPISIOTMY PAIN 01/25/17 21:00 01/25/17 21:19 Dibucaine (Nupercainal) 1 applic BEDSIDE MEDICATION PRN WI HEMORRHOID/EPISIOTMY PAIN 01/25/17 21:00 Lanolin (Tgo-L-Zjllbd) 1 applic BEDSIDE MEDICATION PRN TOP BEDSIDE FOR KATHLEEN TO NIPPLES 01/25/17 21:00 01/25/17 21:19 Measles/Mumps/ Rubella Vaccine Live 0.5 ml 0.5 ml ONCE ONCE SC* 01/27/17 09:00 01/27/17 09:01 Lactated Ringer's 1,000 ml @ 125 mls/hr Q8H IV* 01/25/17 20:58 01/26/17 05:07 DC Oxytocin/Lactated Ringer's 500 ml @ 0 mls/hr ONCE PRN IV For Hemorrhage Management 01/25/17 21:00 Methylergonovine Maleate (Methergine) 0.2 mg ONCE PRN IM VAGINAL BLEEDING 01/25/17 21:00 Carboprost Tromethamine (Hemabate) 250 mcg ONCE PRN IM VAGINAL BLEEDING 01/25/17 21:00 Misoprostol (Cytotec) 1,000 mcg ONCE PRN WI VAGINAL BLEEDING 01/25/17 21:00 MIRANDA NEWSOME MD Jan 26, 2017 09:48
[2017-01-26 12:30] VITALS: BP 107/60; PULSE 70; RESP 16
[2017-01-26] MEDS: ACETAMINOPHEN/CODEINE #3 TAB PO PRN ×2 (13:41→22:40)
[2017-01-26 16:35] VITALS: BP 96/59; PULSE 72; RESP 18
[2017-01-26 20:00] VITALS: BP 109/71; PULSE 68; RESP 18
[2017-01-27] MEDS: IBUPROFEN 600 MG TAB PO SCH ×3 (00:36→11:38)
[2017-01-27 04:00] VITALS: BP 103/69; PULSE 82; RESP 18
[2017-01-27 08:30] VITALS: BP 117/71; PULSE 90; RESP 16
[2017-01-27] MEDS ORDERED: MEASLES,MUMPS,RUBELLA VACCINE INJ SC* ONE (09:00)
--- NOTE | 2017-01-27 09:57 | PD.PPDC ---
BR[facility]ITCHER Discharge Instruction Condition Patient Condition: Good Diet Diet: Resume Regular Diet Activity/Restrictions Activity: Normal Activity May Shower Restrictions: No Exercising No Lifting No Driving No Sexual Activity Nothing in the Vagina No [place] No Tampons, douche Follow-up Follow-up with Physician: 2, Week/Weeks Provider Information: Second day post normal vaginal delivery, vital signs stable abdomen soft uterus firm lochia normal extremity normal. Return to clinic for [facility] Instructions: Fever greater than 101 Chills Worsening abdominal pain Excessive Vaginal Bleeding More than 2 pads per hour Unable to tolerate diet OB Instructions: Breast Tenderness Depression Blurried Vision Headache MIRANDA NEWSOME MD Jan 27, 2017 09:57
--- NOTE | 2017-01-27 10:00 | DS ---
Date/Time of Note Date/Time of Note DATE: 01/27/17 TIME: 09:58 Obstetrical Discharge Record Final Diagnosis Final Diagnosis: Term delivered Vaginal Delivery Obstetrical Delivery: Spontaneous Condition on Discharge Physical Assessment Last Vitals: Post normal vaginal delivery day 2 VS stable afebrile abdomen soft uterus firm lochia normal extremity normal patient discharged home recommended follow-up at the clinic in 2 weeks Voiding: Yes Bowel Movement: Yes Breast: Filling Fundus: Firm Calf Tenderness: No Patient Condition: Good MIRANDA NEWSOME MD Jan 27, 2017 10:00
[2017-01-27] MEDS: SENNA/DOCUSATE NA (8.6MG/50MG) TAB PO SCH (10:09)
== END 2017-01-27 13:50 | disposition home or self-care (01) | DRG 775 ==
LOC: OBT 15:20 → L-D 15:21 → OBT 15:40 → L-D 18:25 → PP1 01-25 20:45
PROVIDERS: ADMIT Obstetrics & Gynecology; ATTEND Obstetrics & Gynecology
PROC: 10E0XZZ Delivery of Products of Conception, External Approach (ICD-10-PCS; principal; 2017-01-25)
PROC: 0HQ9XZZ Repair Perineum Skin, External Approach (ICD-10-PCS; 2017-01-25)
DX: O70.0 First degree perineal laceration during delivery (principal); Z68.41 Body mass index [BMI] 40.0-44.9, adult; O99.214 Obesity complicating childbirth; E66.01 Morbid (severe) obesity due to excess calories; O99.02 Anemia complicating childbirth; Z3A.39 39 weeks gestation of pregnancy; Z37.0 Single live birth
CPT/HCPCS: 62319; 76815; 85025; 85610; 85730; 86592; 86900; 86901; 87340; G0463; J2405; J2590; J3010; J7120